=== PATIENT | male | born 1960 | race Caucasian/White ===

== ENCOUNTER 2021-04-03 13:39 | Emergency (ER) | payer OTHER, MEDICAID ==
[2021-04-03] MEDS ORDERED: Insulin Regular 300 UNITS/3 ML VIAL ONE (16:11)
== END 2021-04-03 16:46 | disposition short-term general hospital (02) ==
LOC: MADERS 13:39
DX: S72.142A Displaced intertrochanteric fracture of left femur, initial encounter for closed fracture (principal); E11.65 Type 2 diabetes mellitus with hyperglycemia; E11.40 Type 2 diabetes mellitus with diabetic neuropathy, unspecified; Z79.4 Long term (current) use of insulin; E78.5 Hyperlipidemia, unspecified; I10 Essential (primary) hypertension; Z79.82 Long term (current) use of aspirin; Z79.899 Other long term (current) drug therapy
CPT/HCPCS: 36416; J1815